=== PATIENT | female | born 1980 | race Caucasian/White ===

== ENCOUNTER 2016-07-17 10:32 | Emergency (ER) | payer OTHER ==
--- NOTE | ~2016-07-17 | CR141 ---
[facility] A Service of [facility] & [facility] RADIOLOGY TEXT RESULTS PATIENT: SUHA SANTA LOCATION: CFTX : 78 UNIT #: [id number] AGE: [address]: Chritsina Brasher APRN SEX: F ORDER DR: [id number] [facility] [address] [place], [place] [address] [id number] E MR#: [id number] Acc #: [id number] NAME: SUHA SANTA : 1980 SEX: F STUDY DATE/TIME: 07/17/2016 11:07 UNIT: [facility] ROOM: STUDY DESCRIPTION: CR Hand Min 3 Views Lt Attending Physician: Christina Brasher A.P.R.N. Ordering Physician: Ed Eren Delgadillo M.D. Primary Care Physician: No Primary Care Physician MEDICAL IMAGING REPORT This report is preliminary unless electronic signature is present EXAM Left hand, 3 views INDICATIONS Pain after falling last night. No comparisons. FINDINGS There is soft tissue swelling at the base of the index finger. There is no evidence of fracture or dislocation. There is a benign bone island in the distal radius. IMPRESSION No fracture or dislocation. Soft tissue swelling at the base of the index finger. Dictated by... Phillip Granados M.D. THIS IS AN ELECTRONICALLY VERIFIED REPORT Phillip Granados M.D. at 07/18/2016 2:21 PM ARS/sameera TD: 07/18/2016 00:26 JOB #: [id number] MEDICAL IMAGING REPORT Page 1 of 1 COPY
[~2016-07-17 10:32] MED LIST: PEPCID40 MG PO
== END 2016-07-17 11:59 | disposition home or self-care (01) ==
LOC: CED 10:32 → CFTX 10:32
DX: S60.022A Contusion of left index finger without damage to nail, initial encounter (principal); W18.09XA Striking against other object with subsequent fall, initial encounter; Y92.009 Unspecified place in unspecified non-institutional (private) residence as the place of occurrence of the external cause
CPT/HCPCS: 29130; 73130; 99283